=== PATIENT | male | born 1980 | race African-American/Black ===

== ENCOUNTER 2017-12-15 19:43 | Inpatient (IN) | payer MEDICAID, OTHER ==
[~2017-12-15] VITALS: Ht 170.2 cm; Wt 62.0 kg
[~2017-12-15 19:43] MED LIST: ACET-1156 PO; DIVA500T53 PO; HAL1T PO; LEVE500T22 PO; PHE100C PO; POLY33504 PO
[2017-12-15] MEDS ORDERED: HALOPERIDOL LACTATE 5 MG/ML INJ VIAL ONE (20:43)
[2017-12-15] MEDS ORDERED: LORazepam 2MG/ML-1ML VIAL ONE (20:43)
[2017-12-15] MEDS ORDERED: LORazepam 2MG/ML-1ML VIAL IM ONE (20:45)
[2017-12-15] MEDS ORDERED: HALOPERIDOL LACTATE 5 MG/ML INJ VIAL IM ONE (20:45)
[2017-12-15] MEDS ORDERED: diphenhdrAMINE HCL 50 MG/1 ML VL IM ONE (20:45)
[2017-12-15 21:45] LABS: Basophils # (auto) 0 uL; Basophils % (auto) 0.6 % (0.0-2.0); Eosinophils # (auto) 0.1 uL; Eosinophils % (auto) 1.7 % (0.0-7.0); Hematocrit 45.7 % (41.0-53.0); Hemoglobin 15.1 g/dL (13.5-17.5); Lymphocytes # (auto) 2.4 uL; Lymphocytes % (auto) 37.1 % (10.0-50.0); Mean Corpuscular Hemoglobin 30.6 pg (28.0-32.0); Mean Corpuscular Volume 92.9 fL (80.0-100.0); Monocytes # (auto) 0.6 uL; Monocytes % (auto) 8.8 % (0.0-12.0); Neutrophils # (auto) 3.3 uL; Neutrophils % (auto) 51.8 % (37.0-80.0); Nucleated Red Blood Cells % 0.3 %; Platelet Count (auto) 216 10^3/uL (140-450); Red Blood Cells 4.92 10^6/uL (4.5-5.90); Red Cell Distribution Width 15.9 % (11.8-14.3); White Blood Cell 6.4 10^3/uL (4.4-10.8)
[2017-12-15 22:21] LABS: BUN/Creatinine Ratio 7.1; Potassium 4.1 mmol/L (3.5-5.1)
[2017-12-15 22:22] LABS: Albumin 3.6 g/dL (3.4-5.0); Calcium 8.5 mg/dL (8.5-10.1)
[2017-12-15 22:28] LABS: Bilirubin, Total 0.4 mg/dL (0.2-1.0)
[2017-12-15 23:34] LABS: Phenytoin (Dilantin) 41.3 ug/mL (10-20)
[2017-12-16] MEDS ORDERED: LEVETIRACETAM INJ 1,000 MG in D5W 5% 100 ML IV ONE (01:00)
[2017-12-16] MEDS ORDERED: LEVETIRACETAM 500 MG/5ML INJ IV ONE (01:14)
[2017-12-16] MEDS ORDERED: SODIUM CHLORIDE 0.9% 1,000 ML IV ONE (01:45)
[2017-12-16] MEDS ORDERED: LORazepam 2MG/ML-1ML VIAL ONE (01:50)
[2017-12-16] MEDS ORDERED: LORazepam 2MG/ML-1ML VIAL IV ONE (02:15)
[2017-12-16] MEDS ORDERED: NITROGLYCERIN 0.4 MG SL TAB SL PRN (03:00)
[2017-12-16] MEDS ORDERED: DOCUSATE SOD 100 MG CAP PO PRN (03:00)
[2017-12-16] MEDS ORDERED: ONDANSETRON HCL 4 MG/2 ML VIAL IV PRN (03:00)
[2017-12-16] MEDS ORDERED: MORPHINE SULF INJ 2 MG/ML SYRINGE 1ML IV PRN (03:00)
[2017-12-16] MEDS ORDERED: ACETAMINOPHEN 325 MG TAB PO PRN (03:00)
[2017-12-16] MEDS: LEVETIRACETAM 500 MG TAB PO SCH ×2 (10:23→22:33)
[2017-12-16] MEDS: ENOXAPARIN SOD 40 MG/0.4 ML SYRINGE SC SCH (10:23)
[2017-12-16] MEDS: FAMOTIDINE 20 MG TAB PO SCH ×2 (10:23→22:34)
[2017-12-16 12:47] LABS: Amphetamine Screen, Urine NEGATIVE (NEGATIVE); Barbiturate Scree,Urine NEGATIVE (NEGATIVE); Benzodiazephine Screen, Urine NEGATIVE (NEGATIVE); Cannabinoid Screen, Urine NEGATIVE (NEGATIVE); Cocaine Screen, Urine NEGATIVE (NEGATIVE); Opiate Scree,Urine NEGATIVE (NEGATIVE); Phencyclidine Screen, Urine NEGATIVE (NEGATIVE)
[2017-12-16] MEDS: LORazepam 2MG/ML-1ML VIAL IV PRN (12:51)
[2017-12-16 17:00] VITALS: BP 102/68
[2017-12-16 22:00] VITALS: BP 106/59
[2017-12-16] MEDS: HYDROcodone-ACET 5/325MG TAB PO PRN (22:35)
[2017-12-17] VITALS (7 sets, daily range): BP systolic 74–123; BP diastolic 51–71
[2017-12-17] MEDS ORDERED: NICOTINE 21MG/24 HR TOPICAL PATCH TD ONE (00:30)
[2017-12-17 08:50] LABS: Basophils # (auto) 0 uL; Basophils % (auto) 0.2 % (0.0-2.0); Eosinophils # (auto) 0.1 uL; Eosinophils % (auto) 2.5 % (0.0-7.0); Hematocrit 39.7 % (41.0-53.0); Hemoglobin 13.2 g/dL (13.5-17.5); Lymphocytes # (auto) 1.8 uL; Lymphocytes % (auto) 39.5 % (10.0-50.0); Mean Corpuscular Hemoglobin 30.5 pg (28.0-32.0); Mean Corpuscular Hgb Conc. 33.1 g/dL (32.0-36.0); Monocytes # (auto) 0.5 uL; Monocytes % (auto) 10.3 % (0.0-12.0); Neutrophils # (auto) 2.2 uL; Neutrophils % (auto) 47.5 % (37.0-80.0); Nucleated Red Blood Cells % 0.1 %; Platelet Count (auto) 161 10^3/uL (140-450); Red Blood Cells 4.32 10^6/uL (4.5-5.90); Red Cell Distribution Width 15.7 % (11.8-14.3); White Blood Cell 4.6 10^3/uL (4.4-10.8)
[2017-12-17 09:14] LABS: Albumin 3.2 g/dL (3.4-5.0); Bilirubin, Total 0.4 mg/dL (0.2-1.0); Potassium 3.5 mmol/L (3.5-5.1); Total Protein 7.7 g/dL (6.4-8.2)
[2017-12-17] MEDS: LEVETIRACETAM 500 MG TAB PO SCH ×2 (10:04→22:47)
[2017-12-17] MEDS: ENOXAPARIN SOD 40 MG/0.4 ML SYRINGE SC SCH (10:04)
[2017-12-17] MEDS: FAMOTIDINE 20 MG TAB PO SCH ×2 (10:04→22:46)
[2017-12-17] MEDS: HYDROcodone-ACET 5/325MG TAB PO PRN (17:06)
[2017-12-17 18:59] LABS: Urine Bacteria NONE SEEN /hpf (None Seen); Urine Blood 1+ /uL (Negative); Urine WBC 255 /hpf (0 - 3)
[2017-12-18 05:56] VITALS: BP 121/82
[2017-12-18 09:00] VITALS: BP 102/73
[2017-12-18] MEDS: FAMOTIDINE 20 MG TAB PO SCH ×2 (09:02→21:34)
[2017-12-18] MEDS: LEVETIRACETAM 500 MG TAB PO SCH ×2 (09:03→21:34)
[2017-12-18] MEDS: ENOXAPARIN SOD 40 MG/0.4 ML SYRINGE SC SCH (09:03)
[2017-12-18 13:00] VITALS: BP 110/80
[2017-12-18 17:00] VITALS: BP 93/59
[2017-12-18] MEDS: HYDROcodone-ACET 5/325MG TAB PO PRN (21:34)
[2017-12-18 22:00] VITALS: BP 93/50
[2017-12-19] VITALS (7 sets, daily range): BP systolic 82–109; BP diastolic 56–76
[2017-12-19] MEDS: TEMAZEPAM 15 MG CAP PO PRN (00:35)
[2017-12-19] MEDS: FAMOTIDINE 20 MG TAB PO SCH ×2 (09:37→22:23)
[2017-12-19] MEDS: ENOXAPARIN SOD 40 MG/0.4 ML SYRINGE SC SCH (09:37)
[2017-12-19] MEDS: LEVETIRACETAM 500 MG TAB PO SCH ×2 (09:37→22:24)
[2017-12-19] MEDS ORDERED: HYDROcodone-ACET 5/325MG TAB PO PRN (11:00)
[2017-12-20 05:00] VITALS: BP 95/65
[2017-12-20 08:00] VITALS: BP 99/57
[2017-12-20 09:10] VITALS: BP 99/57
[2017-12-20] MEDS: LEVETIRACETAM 500 MG TAB PO SCH ×2 (11:12→22:21)
[2017-12-20] MEDS: FAMOTIDINE 20 MG TAB PO SCH ×2 (11:12→22:21)
[2017-12-20] MEDS: ENOXAPARIN SOD 40 MG/0.4 ML SYRINGE SC SCH (11:12)
[2017-12-20] MEDS: SODIUM CHLORIDE 0.9% 1,000 ML IV SCH (11:13)
[2017-12-20 12:00] VITALS: BP 91/58
[2017-12-20 17:08] VITALS: BP 94/57
[2017-12-20 21:53] VITALS: BP 95/59
[2017-12-21] MEDS: SODIUM CHLORIDE 0.9% 1,000 ML IV SCH ×2 (00:38→17:03)
[2017-12-21] MEDS: LORazepam 2MG/ML-1ML VIAL IV PRN ×2 (02:23→18:47)
[2017-12-21 05:59] VITALS: BP 100/61
[2017-12-21 08:00] VITALS: BP 97/70
[2017-12-21] MEDS: ENOXAPARIN SOD 40 MG/0.4 ML SYRINGE SC SCH (09:54)
[2017-12-21] MEDS: FAMOTIDINE 20 MG TAB PO SCH ×2 (09:54→21:10)
[2017-12-21] MEDS: LEVETIRACETAM 500 MG TAB PO SCH ×2 (09:55→21:10)
[2017-12-21 12:15] VITALS: BP 98/59
[2017-12-21 16:39] VITALS: BP 98/71
[2017-12-21] MEDS ORDERED: PHE100C PO (17:19)
[2017-12-21] MEDS: TEMAZEPAM 15 MG CAP PO PRN (21:10)
[2017-12-22 05:26] VITALS: BP 91/54
[2017-12-22] MEDS: SODIUM CHLORIDE 0.9% 1,000 ML IV SCH (06:05)
[2017-12-22] MEDS: LORazepam 2MG/ML-1ML VIAL IV PRN (07:33)
[2017-12-22 09:00] VITALS: BP 81/50
[2017-12-22] MEDS: FAMOTIDINE 20 MG TAB PO SCH (10:09)
[2017-12-22] MEDS: LEVETIRACETAM 500 MG TAB PO SCH (10:10)
[2017-12-22] MEDS: ENOXAPARIN SOD 40 MG/0.4 ML SYRINGE SC SCH (10:10)
[2017-12-22 12:39] VITALS: BP 96/59
[2017-12-22 13:47] VITALS: BP 96/59
== END 2017-12-22 16:35 | disposition home or self-care (01) | DRG 53 ==
LOC: EDBD 19:43 → ER 19:43 → TELE 19:44 → TELE-CENTR 12-16 13:48 → CENTRAL 12-20 21:05
PROVIDERS: ADMIT Nurse Practitioner; ATTEND Internal Medicine
DX: G40.909 Epilepsy, unspecified, not intractable, without status epilepticus (principal); G82.50 Quadriplegia, unspecified; E87.2 Acidosis; I50.9 Heart failure, unspecified; T42.0X5A Adverse effect of hydantoin derivatives, initial encounter; E86.0 Dehydration; F32.9 Major depressive disorder, single episode, unspecified; F12.90 Cannabis use, unspecified, uncomplicated; F17.210 Nicotine dependence, cigarettes, uncomplicated; F79 Unspecified intellectual disabilities; N18.9 Chronic kidney disease, unspecified; Z83.3 Family history of diabetes mellitus; Z86.73 Personal history of transient ischemic attack (TIA), and cerebral infarction without residual deficits; Y92.89 Other specified places as the place of occurrence of the external cause; Z87.440 Personal history of urinary (tract) infections; Z87.828 Personal history of other (healed) physical injury and trauma
CPT/HCPCS: 36415; 51702; 70450; 71045; 80053; 80164; 80185; 80307; 81001; 85025; 87081; 93005; 94761; 95819; 96365; 96366; 96372; 96375; A4565; J7060

== ENCOUNTER 2018-06-11 07:37 | Emergency (ER) | payer MEDICAID ==
[~2018-06-11] VITALS: Ht 188 cm; Wt 54.4 kg
[~2018-06-11 07:37] MED LIST changes: -PHE100C PO
[2018-06-11] MEDS ORDERED: LEVETIRACETAM INJ 1,000 MG in D5W 5% 100 ML IV ONE (08:00)
[2018-06-11] MEDS ORDERED: LORazepam 2MG/ML-1ML VIAL IV ONE (08:00)
[2018-06-11 10:37] LABS: Basophils # (auto) 0 uL; Basophils % (auto) 0.3 % (0.0-2.0); Eosinophils # (auto) 0.1 uL; Eosinophils % (auto) 1.4 % (0.0-7.0); Hematocrit 40.8 % (41.0-53.0); Hemoglobin 13.5 g/dL (13.5-17.5); Lymphocytes # (auto) 1.2 uL; Lymphocytes % (auto) 32.8 % (10.0-50.0); Mean Corpuscular Hemoglobin 31.7 pg (28.0-32.0); Mean Corpuscular Volume 96.1 fL (80.0-100.0); Monocytes # (auto) 0.4 uL; Monocytes % (auto) 9.4 % (0.0-12.0); Neutrophils # (auto) 2.1 uL; Neutrophils % (auto) 56.1 % (37.0-80.0); Nucleated Red Blood Cells % 0.2 %; Platelet Count (auto) 155 10^3/uL (140-450); Red Blood Cells 4.25 10^6/uL (4.5-5.90); Red Cell Distribution Width 13.6 % (11.8-14.3); White Blood Cell 3.8 10^3/uL (4.4-10.8)
[2018-06-11 10:53] LABS: BUN/Creatinine Ratio 10.8; Calcium 8.1 mg/dL (8.5-10.1); Potassium 3.4 mmol/L (3.5-5.1)
[2018-06-11 10:56] LABS: Bilirubin, Total 0.3 mg/dL (0.2-1.0); Total Protein 7.4 g/dL (6.4-8.2)
[2018-06-11] MEDS ORDERED: PHENYTOIN SODIUM 100 MG CAP PO ONE (11:45)
--- NOTE | 2018-06-11 12:55 | NUR ---
I faxed transportation home request to [facility] transportation department phone [phone]/fax [phone].
--- NOTE | 2018-06-11 14:56 | NUR ---
I received a message from Steffi at [facility] transportation department letting me know that they will be here at 1500 to transport patient home-I relayed this information to [place] in ER.
[2018-06-11 15:56] VITALS: BP 93/65
== END 2018-06-11 15:58 | disposition home or self-care (01) ==
LOC: EDBD 07:37 → ER 07:48
DX: R56.9 Unspecified convulsions (principal); N18.9 Chronic kidney disease, unspecified; Z86.73 Personal history of transient ischemic attack (TIA), and cerebral infarction without residual deficits
CPT/HCPCS: 36415; 51705; 80053; 80185; 82962; 85025; 96365; 96375; 99284; J1953; J2060; J7060

== ENCOUNTER 2018-07-30 21:43 | Emergency (ER) | payer MEDICAID ==
[~2018-07-30] VITALS: Ht 177.8 cm; Wt 63.5 kg
[~2018-07-30 21:43] MED LIST changes: -ACET-1156 PO; -DIVA500T53 PO; -HAL1T PO; +PHE100C PO; -POLY33504 PO
[2018-07-30 22:21] LABS: Basophils # (auto) 0 uL; Basophils % (auto) 0.1 % (0.0-2.0); Eosinophils # (auto) 0 uL; Eosinophils % (auto) 0.1 % (0.0-7.0); Hematocrit 42.7 % (41.0-53.0); Lymphocytes # (auto) 1.4 uL; Lymphocytes % (auto) 9.2 % (10.0-50.0); Mean Corpuscular Hemoglobin 31.7 pg (28.0-32.0); Mean Corpuscular Hgb Conc. 32.7 g/dL (32.0-36.0); Mean Corpuscular Volume 96.8 fL (80.0-100.0); Monocytes # (auto) 0.7 uL; Monocytes % (auto) 4.9 % (0.0-12.0); Neutrophils # (auto) 12.9 uL; Neutrophils % (auto) 85.7 % (37.0-80.0); Platelet Count (auto) 186 10^3/uL (140-450); Red Blood Cells 4.41 10^6/uL (4.5-5.90); Red Cell Distribution Width 14.2 % (11.8-14.3)
[2018-07-30 22:40] LABS: Alanine Aminotransferase 38 U/L (16-61); Albumin 3.5 g/dL (3.4-5.0); Anion Gap 8 (5-15); Aspartate Aminotransferase 27 U/L (15-37); BUN/Creatinine Ratio 8.6; Blood Urea Nitrogen 5 mg/dL (7-18); Calcium 8.7 mg/dL (8.5-10.1); Carbon Dioxide 28 mmol/L (21-32); Chloride 105 mmol/L (98-107); GFR African American 203 mL/min; GFR Non-African American 168 mL/min; Glucose 94 mg/dL (74-106); Sodium 141 mmol/L (136-145)
[2018-07-30] MEDS ORDERED: LORazepam 2MG/ML-1ML VIAL ONE (22:42)
[2018-07-30] MEDS ORDERED: diphenhdrAMINE HCL 50 MG/1 ML VL ONE (22:42)
[2018-07-30] MEDS ORDERED: HALOPERIDOL LACTATE 5 MG/ML INJ VIAL ONE (22:42)
[2018-07-30 22:43] LABS: Alkaline Phosphatase 112 U/L (45-117); Bilirubin, Total 0.3 mg/dL (0.2-1.0); Total Protein 8.4 g/dL (6.4-8.2)
[2018-07-30] MEDS ORDERED: LORazepam 2MG/ML-1ML VIAL IV ONE (23:00)
[2018-07-30] MEDS ORDERED: diphenhdrAMINE HCL 50 MG/1 ML VL IV ONE (23:00)
[2018-07-30] MEDS ORDERED: HALOPERIDOL LACTATE 5 MG/ML INJ VIAL IM ONE (23:00)
[2018-07-31] MEDS ORDERED: PHENYTOIN IV DILANTIN 500 MG in SODIUM CHL 0.9% 100 ML IV ONE (00:15)
[2018-07-31] MEDS ORDERED: PHENYTOIN SODIUM 50 MG/ML 5ML INJ VIAL IV ONE (00:20)
[2018-07-31 09:46] VITALS: BP 85/61
== END 2018-07-31 10:01 | disposition home or self-care (01) ==
LOC: EDBD 21:43 → ER 21:52
DX: G40.909 Epilepsy, unspecified, not intractable, without status epilepticus (principal); N18.9 Chronic kidney disease, unspecified; Z86.73 Personal history of transient ischemic attack (TIA), and cerebral infarction without residual deficits; Z91.14 Patient's other noncompliance with medication regimen
CPT/HCPCS: 36415; 80053; 80185; 85025; 96365; 96372; 96375; 99283; J1165; J1200; J1630; J2060

== ENCOUNTER 2018-09-27 10:42 | Emergency (ER) | payer MEDICAID ==
[2018-09-27 11:00] VITALS: BP 100/60
--- NOTE | 2018-09-27 11:53 | NUR ---
Midline Placement: Patient educated on need for midline placement. All risks and benefits explained and all questions and concerns addresses prior to procedure. 18g/cm midline inserted via vein using Ultrasound. Sterile technique utilized. Blood return obtained from lumen and flushed easily with NS using proper technique. Midline secured with saline lock; biodisc and occlusive dressing applied.
[2018-09-27] MEDS ORDERED: cefTRIAXone 1GM/50ML D5W 50 ML IV ONE (13:00)
[2018-09-27 13:37] LABS: Urine Bacteria NONE SEEN /hpf (None Seen); Urine Blood Negative /uL (Negative); Urine Budding Yeast MODERATE /hpf (None Seen); Urine Mucus FEW (None Seen); Urine Specific Gravity 1.024 (1.001-1.035); Urine WBC 94 /hpf (0 - 3); Urine WBC Clumps PRESENT /hpf (None Seen)
== END 2018-09-27 18:35 | disposition home or self-care (01) ==
LOC: EDBD 10:42 → EDUNIT# 10:42 → ER 10:45
DX: T82.524A Displacement of infusion catheter, initial encounter (principal); N39.0 Urinary tract infection, site not specified; N18.9 Chronic kidney disease, unspecified; Z79.899 Other long term (current) drug therapy; Z91.018 Allergy to other foods; Z86.73 Personal history of transient ischemic attack (TIA), and cerebral infarction without residual deficits; Y83.8 Other surgical procedures as the cause of abnormal reaction of the patient, or of later complication, without mention of misadventure at the time of the procedure; Y92.89 Other specified places as the place of occurrence of the external cause
CPT/HCPCS: 81001; J0696

== ENCOUNTER 2018-12-07 11:10 | Inpatient (IN) | payer MEDICAID | END 2018-12-20 18:13 | disposition home health service (06) | LOC: TELE-CENTR 12-11 16:24 → ER 11:10 → TELE 11:11 → TELE-CENTR 18:32 | DX: T83.511A Infection and inflammatory reaction due to indwelling urethral catheter, initial encounter (principal); A41.9 Sepsis, unspecified organism; E87.5 Hyperkalemia; F20.9 Schizophrenia, unspecified; G82.20 Paraplegia, unspecified; G40.909 Epilepsy, unspecified, not intractable, without status epilepticus; N39.0 Urinary tract infection, site not specified; Z86.73 Personal history of transient ischemic attack (TIA), and cerebral infarction without residual deficits ==

== ENCOUNTER 2019-02-17 12:14 | Emergency (ER) | payer MEDICAID ==
[~2019-02-17] VITALS: Ht 170.2 cm; Wt 54.4 kg
[2019-02-17] MEDS ORDERED: SODIUM CHLORIDE 0.9% 1,000 ML IV ONE ×2 (12:45)
[2019-02-17] MEDS ORDERED: LORazepam 2MG/ML-1ML VIAL ONE (13:12)
[2019-02-17] MEDS: LORazepam 2MG/ML-1ML VIAL IV ONE ×2 (13:15→13:18)
[2019-02-17] MEDS ORDERED: LORazepam 2MG/ML-1ML VIAL IM ONE (14:15)
[2019-02-17 16:33] LABS: Albumin 3.6 g/dL (3.4-5.0); Basophils # (auto) 0 uL; Basophils % (auto) 0.5 % (0.0-2.0); Calcium 8.6 mg/dL (8.5-10.1); Eosinophils # (auto) 0.1 uL; Eosinophils % (auto) 1.5 % (0.0-7.0); Hematocrit 41.8 % (41.0-53.0); Hemoglobin 13.9 g/dL (13.5-17.5); Lymphocytes # (auto) 1.3 uL; Mean Corpuscular Hemoglobin 31.8 pg (28.0-32.0); Mean Corpuscular Hgb Conc. 33.4 g/dL (32.0-36.0); Mean Corpuscular Volume 95.3 fL (80.0-100.0); Monocytes # (auto) 0.4 uL; Monocytes % (auto) 8.3 % (0.0-12.0); Neutrophils # (auto) 2.7 uL; Neutrophils % (auto) 60.7 % (37.0-80.0); Nucleated Red Blood Cells % 0.2 %; Platelet Count (auto) 203 10^3/uL (140-450); Potassium 3.5 mmol/L (3.5-5.1); Red Blood Cells 4.38 10^6/uL (4.5-5.90); Red Cell Distribution Width 13.6 % (11.8-14.3); White Blood Cell 4.5 10^3/uL (4.4-10.8)
[2019-02-17 16:36] LABS: BUN/Creatinine Ratio 6.9; Bilirubin, Total 0.3 mg/dL (0.2-1.0); Total Protein 8.2 g/dL (6.4-8.2)
[2019-02-17 18:38] VITALS: BP 96/72
== END 2019-02-17 16:26 | disposition home or self-care (01) ==
LOC: EDBD 12:14 → ER 12:31
DX: G40.909 Epilepsy, unspecified, not intractable, without status epilepticus (principal); N39.0 Urinary tract infection, site not specified; F20.9 Schizophrenia, unspecified; R41.82 Altered mental status, unspecified; N18.9 Chronic kidney disease, unspecified; Z86.73 Personal history of transient ischemic attack (TIA), and cerebral infarction without residual deficits
CPT/HCPCS: 36415; 71045; 80053; 85025; 96372; 99284; J2060